=== PATIENT | female | born 2000 | race Asian ===

== ENCOUNTER 2023-06-28 10:58 | Outpatient (REF) | payer MEDICAID, SELFPAY ==
[2023-06-30 17:04] LABS: TS Negative Control Passed; TS Panel A 1; TS Panel B 1; TS Positive Control Passed; TSpotTB Negative (Negative)
== END 2023-06-28 10:59 | disposition home or self-care (01) ==
LOC: HO.CHCLDS 10:58
PROVIDERS: Visit Provider Pediatrics
DX: Z11.1 Encounter for screening for respiratory tuberculosis (principal)
CPT/HCPCS: 36415; 86481